=== PATIENT | female | born 1985 | race Two or more races ===

== ENCOUNTER 2024-10-18 08:53 | Emergency (ER) | payer OTHER ==
[~2024-10-18] VITALS: Ht 160 cm; Wt 83.9 kg
[2024-10-18 09:00] VITALS: BP 148/67; TEMP 98.3; O2SAT 99
[2024-10-18] MEDS ORDERED: HYDR-3972 PO (10:40)
[2024-10-18] MEDS: IBUPROFEN 600 MG TABLET PO ONE (11:03)
== END 2024-10-18 11:03 | disposition home or self-care (01) ==
LOC: ER 09:06
DX: S93.492A Sprain of other ligament of left ankle, initial encounter (principal); S80.01XA Contusion of right knee, initial encounter; S60.032A Contusion of left middle finger without damage to nail, initial encounter; X50.1XXA Overexertion from prolonged static or awkward postures, initial encounter; Y93.89 Activity, other specified; Y92.89 Other specified places as the place of occurrence of the external cause; Y99.8 Other external cause status
CPT/HCPCS: 73130-TC; 73564-TC; 73590-TC; 73610-TC